=== PATIENT | female | born 1940 | race Caucasian/White ===

== ENCOUNTER 2023-12-09 06:30 | Day surgery (SDC) | payer MEDICARE, SELFPAY ==
[2023-12-01 08:59] LABS: Hematocrit 41.6 % (37.0-47.0); Hemoglobin 13.6 g/dL (12.0-16.0); Mean Corp Hgb Conc. 32.7 g/dL (33.0-37.0); Mean Corpuscular Hgb 30.5 pg (27.0-31.0); Mean Corpuscular Volume 93.3 fL (81.0-99.0); Mean Platelet Volume 9.5 fL (7.4-10.4); Platelet Count 216 10^3/uL (130-400); Red Blood Cell Count 4.46 10^6/uL (4.20-5.40); Red Cell Dist. Width 12.4 % (11.5-14.5); White Blood Cell Count 4.4 10^3/uL (4.8-10.8)
[2023-12-01 09:29] LABS: Blood Urea Nitrogen 16 mg/dl (7-17); Calcium 9.7 mg/dl (8.4-10.2); Carbon Dioxide 28 mmol/L (22-30); Chloride 100 mmol/L (98-107); Glucose 86 mg/dl (70-99); Potassium 4.2 mmol/L (3.5-5.1); Sodium 136 mmol/L (135-145); eGFR > 60.00
[2023-12-01 15:50] VITALS: BMI 20.8
--- NOTE | 2023-12-04 13:56 | PTCARENOTE ---
Abnormal EKG on 12/01/23. Dr. Lozoya made aware. No intervention needed.
--- NOTE | 2023-12-05 10:27 | CM ---
Patient is scheduled for surgery with Dr. Rondon on 12/09/23. Spoke with patient prior to surgery via telephone. Introduced role of case management. Patient reports that she lives with her in a two story home. Bedroom and bathroom are on the
second floor. She functions independently and does not use any DME. She has a cane and rolling walker from prior knee replacement surgery. She never had VN services. She has a prescription plan and uses [facility] in [place].
PCP is Dr. Hira Lee
Patient states that she will have support from her son, Last (who lives next door to patient and her ), when she goes home. She has no discharge planning concerns at this time.
[2023-12-09] VITALS (15 sets, daily range): BP systolic 103–162; BP diastolic 52–98; BMI 20.8; BMI 21.0
[2023-12-09] MEDS: NORMOSOL-R 1000 IV ×2 (11:45→18:40)
[2023-12-09] MEDS: Pyridium 200 MG PO (12:38)
[2023-12-09] MEDS: HEPARIN 5000 UNITS SC (12:39)
[2023-12-09] MEDS: FLAGYL 500 MG 100 IV (13:33)
[2023-12-09] MEDS: DILAUDID 0.25 MG IV (18:27)
[2023-12-09] MEDS: LOVENOX 40 MG SC (20:11)
[2023-12-09] MEDS: COLACE 100 MG PO (20:12)
[2023-12-09] MEDS: ROXICODONE 2.5 MG PO (20:15)
--- NOTE | 2023-12-09 21:00 | PTCARENOTE ---
Pt was admitted to . [facility]. AAOx3 pleasant.Pt has minimal pain and was informed about possible abd cramps from procedure. Heart sounds are regular and Lungs WNL. Abr round, distended and tender to palpation. pt is passing gas. Grace catheter intact.
Abd surgical sites appear dry and intact. Call lange within reach.
[2023-12-09] MEDS: MYLICON 80 MG PO (21:31)
[2023-12-10] MEDS: NORMOSOL-R 1000 IV (00:30)
[2023-12-10 03:00] VITALS: BP 114/65
[2023-12-10] MEDS: ROXICODONE 5 MG PO (03:02)
[2023-12-10] MEDS: MYLICON 80 MG PO ×2 (03:02→10:38)
[2023-12-10 05:08] LABS: Hemoglobin 10.4 g/dL (12.0-16.0); Mean Corp Hgb Conc. 33.5 g/dL (33.0-37.0); Mean Corpuscular Volume 89.3 fL (81.0-99.0); Mean Platelet Volume 9.4 fL (7.4-10.4); Platelet Count 138 10^3/uL (130-400); Red Blood Cell Count 3.47 10^6/uL (4.20-5.40); Red Cell Dist. Width 12.1 % (11.5-14.5); White Blood Cell Count 9.3 10^3/uL (4.8-10.8)
[2023-12-10 05:29] LABS: Blood Urea Nitrogen 11 mg/dl (7-17); Carbon Dioxide 26 mmol/L (22-30); Chloride 100 mmol/L (98-107); Estimated Creatinine Clearance 66 ml/min; Potassium 3.4 mmol/L (3.5-5.1); Sodium 129 mmol/L (135-145)
--- NOTE | 2023-12-10 07:09 | W.PN.GYN ---
Today's Communication / Plan
-
1. voiding trial
2. d/c home
Physician Note
-
Assessment and Plan:
83 yo woman POD 1 s/p robotic TLH, BSO, sacrocolpopexy, KEMAR, posterior colporrhaphy with perineoplasty, retropubic midurethral sling, cystoscopy: meeting postoperative milestones and doing well on POD1.
1. Postoperative Care:
-Heplock IV
-Regular diet
-DVT ppx: lovenox, ambulation, scds
-CBC: WNL
-BMP: WNL
-UOP: adequate
-Voiding trial: blackburn removed, awaiting void
2. Dispo
-d/c home today
Subjective:
-pain well controlled, tolerating diet, foely removed, no flatus, denies nausea/vomiting, sob, chest pain, fevers/chills, leg pain
Objective:
Intake and Output
12/08/23 12/09/23 12/10/23 12/11/23
06:59 06:59 06:59 06:59
Intake Total 1380 / 1380
Output Total 2450 / 2450
Balance -1070 / -1070
Intake:
Oral fluids 480 / 480
IV fluids (Total) 900 / 900
Normosal 400 / 400
Output:
Urine, Blackburn 2450 / 2450
Vital Signs
Temp Pulse Resp BP Pulse Ox
98.2 F 92 16 114/65 98
12/10/23 03:00 12/10/23 03:00 12/10/23 03:00 12/10/23 03:00 12/10/23 03:00
Lab Results
12/10/23 04:31
12/10/23 04:31
Exam:
Incisions: clean, dry, intact
Abdomen: soft, nontender, nondistended
: minimal spotting
[2023-12-10 07:50] VITALS: BP 127/69
[2023-12-10] MEDS: COLACE 100 MG PO (07:51)
--- NOTE | 2023-12-10 08:10 | CM ---
Reviewed chart and discussed with RN. Patient is s/p robotic TLH, BSO, sacrocolpopexy, KEMAR, posterior colporrhaphy with perineoplasty, retropubic midurethral sling, cystoscopy. Grace d/c'd this am; voiding trial in progress. Met with patient at
bedside. Confirmed information previously obtained for assessment and discussed discharge plans. Patient continues to plan to return home at discharge. She will have support from her and son when she goes home. She continues to have no
concerns about discharge plans.
No discharge planning needs identified.
[2023-12-10 11:35] VITALS: BP 130/71
--- NOTE | 2023-12-10 16:30 | PTCARENOTE ---
"Patient was due to void by 1230 per policy. Patient had not voided. Bladder scan at [address] Rondon made aware and instructed RN to give patient 2 more hours. At 1430 patient still had not gone. bladder scan at that time was 353. "Stefania"Alcon made aware. When RN returned to the [facility] patient had voided 300 ml dark yellow urine. PVR 39. Dr. Rondon made aware. Telephone order to discharge patient take at 1540. Patient discharged at 1600."
== END 2023-12-10 16:27 | disposition home or self-care (01) ==
LOC: SDS 06:30
PROVIDERS: ATTENDING PHYSICIAN Obstetrics & Gynecology; FAMILY PHYSICIAN Family Medicine
DX: N81.2 Incomplete uterovaginal prolapse (principal); N95.2 Postmenopausal atrophic vaginitis; N39.3 Stress incontinence (female) (male); D25.9 Leiomyoma of uterus, unspecified; N80.03 Adenomyosis of the uterus; N88.4 Hypertrophic elongation of cervix uteri
CPT/HCPCS: 57425; 58571; 57250; 57288; 88305; 36415; 80048; 80051; 82565; 84520; 85027; 86850; 86900; 86901; 93005; C1763; C1771

== ENCOUNTER → 2024-06-11 07:58 | Outpatient (REF) | payer MEDICARE, SELFPAY | LOC: WDC 07:58 | PROVIDERS: ATTENDING PHYSICIAN Family Medicine; FAMILY PHYSICIAN Physician Assistant | DX: Z12.31 Encounter for screening mammogram for malignant neoplasm of breast (principal); M81.0 Age-related osteoporosis without current pathological fracture | CPT/HCPCS: 77063; 77067; 77080 ==

== ENCOUNTER → 2025-03-25 09:33 | Outpatient (REF) | payer MEDICARE, SELFPAY | LOC: REG 09:33 | PROVIDERS: ATTENDING PHYSICIAN Physical Medicine & Rehabilitation; FAMILY PHYSICIAN Family Medicine | DX: M47.816 Spondylosis without myelopathy or radiculopathy, lumbar region (principal); Z87.39 Personal history of other diseases of the musculoskeletal system and connective tissue | CPT/HCPCS: 72100 ==

== ENCOUNTER → 2025-03-28 12:53 | Outpatient (REF) | payer MEDICARE, SELFPAY | LOC: RAD 12:53 | PROVIDERS: ATTENDING PHYSICIAN Nurse Practitioner Family; FAMILY PHYSICIAN Family Medicine | DX: M79.89 Other specified soft tissue disorders (principal) | CPT/HCPCS: 93971 ==

== ENCOUNTER → 2025-05-05 14:31 | Outpatient (REF) | payer MEDICARE, SELFPAY | LOC: RAD 14:31 | PROVIDERS: ATTENDING PHYSICIAN Nurse Practitioner Family | DX: M79.89 Other specified soft tissue disorders (principal) | CPT/HCPCS: 73590 ==

== ENCOUNTER → 2025-05-24 08:48 | Outpatient (REF) | payer MEDICARE, SELFPAY | LOC: DHVS 08:48 | PROVIDERS: ATTENDING PHYSICIAN Nurse Practitioner Family; FAMILY PHYSICIAN Family Medicine | DX: M79.89 Other specified soft tissue disorders (principal); L03.115 Cellulitis of right lower limb | CPT/HCPCS: 93926 ==

== ENCOUNTER 2025-06-03 07:40 | Emergency (ER) | payer MEDICARE, SELFPAY ==
[2025-06-03 07:41] VITALS: BP 175/85
--- NOTE | 2025-06-03 07:53 | ED.GENMED ---
History of Present Illness
<Georgina Chris MD, Resident - Last Filed: 06/03/25 11:49>
General
Chief Complaint: Skin Problem
Source: patient
Exam Limitations: none
Time Seen by Provider: 06/03/25 07:50
Nursing documentation reviewed up to this point in time: agreed with
History of Present Illness
History of Present Illness:
85-year-old female with past medical history of hypertension comes to the ED due to continued erythema, edema of her right lower extremity that has been going on for the past few months since March. She has had extensive workup at her PCP with
multiple ultrasounds and 3 course of antibiotic treatment starting with Keflex, Doxy, Bactrim. She was also given Lasix to try to help with edema but that did not help either. Just currently she is scheduled for an MRI on September 05. She decided
to come to the ED due to her right foot being edematous now too. She does not have any pain or tenderness in the area of erythema, there is just some edema and redness. Left leg has presence of varicose veins but no edema or tenderness either.
She does not report any fever, shortness of breath, trouble breathing, headaches, chest pain rating symptoms alongside of this. She had right knee surgery around 3 years ago reports no pain in the knee at this time.
Past History
<Georgina Chris MD, Resident - Last Filed: 06/03/25 11:49>
Past History
ED Past Medical History: HTN and Other (OA right knee)
ED Past Surgical History: Other (In 1988 thyroid mass removed and was benign.)
Social History
Tobacco: Non-smoker
Alcohol: Occasional
Drug: None
Personal:
Living: with family
Employment: Retired
Family History
Family History: Unable to obtain
Review of Systems
<Georgina Chris MD, Resident - Last Filed: 06/03/25 11:49>
Review of Systems
Allergies reviewed?: Yes
Constitutional: Denies fever or chills
EENT: Reports no symptoms
Respiratory: Reports no symptoms
Cardiac: Reports no symptoms
ABD/GI: Reports no symptoms
: Reports no symptoms
Musculoskeletal: Reports edema (Right lower leg)
Skin: Reports other (Erythema right lower leg)
Neurological: Reports no symptoms
Endocrine: Reports no symptoms
Hematologic/Lymphatic: Reports no symptoms
Psychiatric: Reports no symptoms
Phy Exam
<Georgina Chris MD, Resident - Last Filed: 06/03/25 11:49>
General Physical Exam
General Presentation: well appearing and no apparent distress
General Skin: warm and dry
General Habitus: elderly
General Mental: alert
General Hydration: appears well hydrated
Cardiovascular Exam
Cardiovascular Exam: regular rate/rhythm, no edema and no murmur
Pulmonary Exam
Pulmonary Exam: lungs clear, no respiratory distress, no crackles and no wheezing
Gastrointestinal Exam
Gastrointestinal Exam: normal bowel sounds, non tender, soft and non distended
Neurological Exam
Neurological Exam: alert, oriented x3, no motor deficits and no sensory deficits
Musculoskeletal Exam
Musculoskeletal Exam: full ROM, edema (Right lower extremity mild pedal edema, mild edema along right tibia) and neuro vasc intact (Pedal pulses + popliteal pulses palpable)
Skin Exam
Skin Exam: erythema (Right lower extremity erythema around the right garvin, without tenderness)
Course
<Georgina Chris MD, Resident - Last Filed: 06/03/25 11:49>
Orders/Labs/Results
Orders:
Orders
06/03/25 09:23
US Periph Venous LOWER Ext RT Urgent
Comment:
Reason For Exam: Right lower extremity edema
06/03/25 10:21
Complete Blood Count/With Diff Urgent
Comprehensive Metabolic Panel Urgent
Abnormal Lab Results
06/03/25
10:21
RBC 4.10 L 10^6/uL
(4.20-5.40)
MCHC 32.4 L g/dL
(33.0-37.0)
Monocytes % 9.7 H %
(1.7-9.3)
Sodium 132 L mmol/L
(135-145)
Creatinine 0.5 L mg/dL
(0.6-1.0)
06/03/25 10:21
06/03/25 10:21
Vital Signs
Initial and Last Documented VS:
Initial Vital Signs
Temp Pulse Resp BP Pulse Ox
98.1 F 84 18 175/85 100
06/03/25 07:41 06/03/25 07:41 06/03/25 07:41 06/03/25 07:41 06/03/25 07:41
Last Documented Vital Signs
Temp Pulse Resp BP Pulse Ox
98.7 F 69 18 150/91 98
06/03/25 10:19 06/03/25 11:46 06/03/25 07:41 06/03/25 11:46 06/03/25 11:46
<Fredis Travis, DO - Last Filed: 06/03/25 11:45>
Orders/Labs/Results
Orders:
Orders
06/03/25 09:23
US Periph Venous LOWER Ext RT Urgent
Comment:
Reason For Exam: Right lower extremity edema
06/03/25 10:21
Complete Blood Count/With Diff Urgent
Comprehensive Metabolic Panel Urgent
Abnormal Lab Results
06/03/25
10:21
RBC 4.10 L 10^6/uL
(4.20-5.40)
MCHC 32.4 L g/dL
(33.0-37.0)
Monocytes % 9.7 H %
(1.7-9.3)
Sodium 132 L mmol/L
(135-145)
Creatinine 0.5 L mg/dL
(0.6-1.0)
06/03/25 10:21
06/03/25 10:21
Vital Signs
Initial and Last Documented VS:
Initial Vital Signs
Temp Pulse Resp BP Pulse Ox
98.1 F 84 18 175/85 100
06/03/25 07:41 06/03/25 07:41 06/03/25 07:41 06/03/25 07:41 06/03/25 07:41
Last Documented Vital Signs
Temp Pulse Resp BP Pulse Ox
98.7 F 69 18 150/91 98
06/03/25 10:19 06/03/25 11:46 06/03/25 07:41 06/03/25 11:46 06/03/25 11:46
<Georgina Chris MD, Resident - Last Filed: 06/03/25 11:49>
MDM/Problems Addressed
Differential Diagnosis Includes:
RLE Cellulitis, RLE DVT, RLE Stasis Dermatitis
MDM/Problems Addressed:
85-year-old female with past medical history of hypertension comes to the ED due to continued erythema, edema of her right lower extremity that has been going on for the past few months since March.
Patient has had multiple right lower extremity ultrasounds to check for DVTs in the past. Will repeat ultrasound today.
Erythema may be just due to stasis dermatitis and has been treated with multiple antibiotic treatments in the past
US Right lower extremity today does not show any evidence of DVT
Unclear why there is edema but erythema could be due to dermatitis.
Edema could be due to lymphedema, will need to follow-up with lymphedema therapist. Discussed with patient regarding continued use of compression stockings
Chronic conditions affecting care: HTN
<Georgina Chris MD, Resident - Last Filed: 06/03/25 11:49>
*Pulse Oximetry
SaO2: 100
Oxygen Mode of Delivery: Room air
Patient hypoxic: no
*Critical Care Note
Total Time (30-74mins, 75-104mins- exclusive of procedures): Not Applicable
<Fredis GueritaShant Travis DO - Last Filed: 06/03/25 11:45>
Update Note
Update Note:
Note:
CHIEF COMPLAINT(S)
Swelling in the right leg.
HISTORY OF PRESENT ILLNESS
The patient is an 85-year-old female who presents with an enlarged right leg. The symptoms began in early March after participating in a [employer] Day parade, which involved prolonged standing. She reports the swelling has been consistent every day
since then, persisting throughout the day and increasing into the foot, particularly over the past week. The patient notes that she has tried wearing compression stockings with no success. She describes the swelling as more profound in the mornings.
Additionally, there is noticeable enlargement of varicose veins and a constant redness that has been present alongside the swelling.
She underwent a venous ultrasound in March, with a subsequent recent arterial ultrasound. Past treatment with antibiotics did not alleviate the symptoms. Her primary doctor had suspected dermatitis as a potential cause. No blood work abnormalities
were noted in previous evaluations. The plan is to repeat the ultrasound to rule out any clotting issues as a possible cause for the unilateral swelling, given the prior imaging results and to conduct lab work to check her white blood cell count and
kidney function.
PAST MEDICAL AND SURIGICAL HISTORY
The patient mentioned previous evaluations that included blood work with normal results and no prior conditions contributing directly to the current issue.
SOCIAL DETERMINANTS AFFECTING HEALTH
The patient expressed being quite active, regularly walking around her house, which is encouraged to maintain circulation.
REVIEW OF SYSTEMS
- Cardiovascular: Consistent swelling in the right leg, larger in the mornings and into the foot.
- Integumentary: Presence of varicose veins, chronic redness of the leg.
- Vascular: Recent normal arterial ultrasound and prior venous ultrasound.
PHYSICAL EXAM
General: Alert, no acute distress.
Skin: Warm, dry.
Head: Normocephalic, atraumatic.
Neck: Supple, trachea midline.
Eyes, Ears, Nose, Mouth, and Throat: Oral mucosa moist.
Cardiovascular: Normal peripheral perfusion, no edema in the left leg; significant edema in the right leg.
Respiratory: Respirations are non-labored.
Gastrointestinal: Abdomen nondistended.
Back: Normal range of motion, normal alignment.
Musculoskeletal: Normal range of motion, normal strength.
Neurological: Alert and oriented to person, place, time, and situation, no focal neurological deficit observed.
Psychiatric: Cooperative, appropriate mood & affect.
PROBLEM LIST
- Acute: Swelling and erythema of the right leg.
- Chronic: Varicose veins.
PLAN
1. Conduct lab work to assess white blood cell count and kidney function.
2. Repeat the venous ultrasound to evaluate for potential progression in clotting.
3. Continued encouragement of physical activity to promote circulation.
DIFFERENTIAL DIAGNOSIS
The Differential Diagnosis includes, in no particular order and is not limited to:
1. Deep vein thrombosis
2. Chronic venous insufficiency
3. Cellulitis
4. Lymphedema
5. Heart failure
6. Lipodermatosclerosis
7. Peripheral arterial disease
8. Dermatologic conditions
9. Systemic causes (e.g., nephrotic syndrome)
10. Trauma-induced edema
Disposition:
SUMMARY OF ENCOUNTER
An 85-year-old female presented to the emergency department with persistent brawny edema in the right lower extremity, without fever. Laboratory tests including CBC and chemistry panels were normal, with a normal white count and no left shift.
Previous vascular and venous ultrasounds were negative for deep vein thrombosis (DVT), and an arterial study was also negative. The symptoms are consistent with lymphedema, although the etiology remains unclear. The patient had not been using
compression stockings as recommended. Despite previous treatments with three different antibiotics, symptoms remain unchanged, indicating a non-infectious cause, making cellulitis unlikely.
PLAN
Referral to primary care physician for the consideration of lymphedema therapy. Recommendations to start wearing compression stockings have been reiterated. Dermatology follow-up is also suggested to rule out other potential dermatologic conditions.
INDEPENDENT REVIEW OF LABS AND INTERPRETATION OF TESTS
My independent review of CBC is normal, including normal white cell count without left shift. My independent review of chemistry is normal. My independent review of previous venous ultrasound is negative for DVT. My independent review of the
arterial study is negative.
PATIENT EDUCATION AND COUNSELING
Discussed the use of compression stockings to manage swelling and emphasized the importance of adherence to this intervention.
FOLLOW-UP INSTRUCTIONS
Follow-up with primary care physician for consideration of lymphedema therapy and dermatology follow-up.
MEDICAL DECISION MAKING
-Complexity of Data Reviewed: Chronic conditions affecting care include chronic venous insufficiency and chronic lymphedema. Differential Diagnosis includes: Deep vein thrombosis, Chronic venous insufficiency, Cellulitis, Lymphedema, Heart failure,
Lipodermatosclerosis, Peripheral arterial disease, Dermatologic conditions, Systemic causes (e.g., nephrotic syndrome), Trauma-induced edema.
-Data:
Category 1
I ordered the review of patients CBC and chemistry panel results which were normal. There is a documented review of venous and arterial ultrasound studies, both negative for abnormalities.
Category 2
My independent interpretation of imaging results reveals no DVT or arterial abnormalities.
-Risk:
Consideration of Admission/Observation: Escalation of care including admission/observation was considered given the complexity and risk of the patients presenting complaint, exam findings, and/or their underlying comorbidities. However, ultimately I
feel the patient is safe for outpatient management with close follow-up. Reasoning: Work-up reassuring, does not reveal any acute life/organ-threatening processes, patients symptoms well controlled upon reevaluation, reexamination is reassuring,
vitals are stable, patient agreeable with discharge, reliable for follow-up.
DIAGNOSIS
Lymphedema, right lower extremity (ICD-10: I89.0). Chronic venous insufficiency (ICD-10: I87.2).
ED Attending Note
<Georgina Chris MD, Resident - Last Filed: 06/03/25 11:49>
-
Portions of this chart may have been created with voice recognition software.� Occasional wrong word or��sound alike� substitutions may have occurred due to the inherent limitations of voice recognition software.
Discharge Plan
Departure
Patient Disposition: Home (Routine Discharge)
Date of Disposition: 06/03/25
Time of Disposition: 11:48
Patient with high blood pressure during this ER visit?: Yes
Condition: Good
Covid-19: Not Applicable
Discharge Problem:
Edema of right lower extremity
Instructions: Swelling, BLOOD PRESSURE
Prescriptions:
No Action
calcium carbonate 500 MG tablet
500 mg PO DAILY
amlodipine 5 MG tablet
5 mg PO HS Qty: 0 0RF
Rx Instructions:
Hold if systolic blood pressure <130 while on Oxycodone.
estradiol 0.01 % (0.1 mg/gram) Cream
1 g VAGINAL TUTH
acetaminophen [Tylenol Extra Strength] 500 mg Tablet
1,000 mg PO BID
cholecalciferol (vitamin D3) [Vitamin D3] 25 mcg (1,000 unit) Tablet
25 mcg PO DAILY
Prolia 60 mg/mL Syringe
60 mg SC [id number]
diclofenac sodium 1 % gel
1 ea TOPICAL TIDPRN PRN (Reason: hand and wrist pain)
docusate sodium 100 mg capsule
100 mg PO BIDPRN PRN (Reason: constipation)
Referrals:
Hira Lee MD [Family Provider, Family Practice]
Activity Restrictions/Additional Instructions:
As discussed please follow-up with your primary care physician in 1 week. Discussed with them that your symptoms might be due to lymphedema. Would recommend following up with lymphedema specialist for therapy.
You can also speak with your PCP regarding following up with dermatology.
Please return to the ED if you develop any worsening fever, chills, shortness of breath, difficulty breathing, chest pain.
Please continue using compression stockings on your right lower extremity
Interventions
Interventions:
*Risk Screen - Suicide Last Done: 06/03/25 07:41
*General Assessment Last Done: 06/03/25 07:41
*Neglect/Abuse Screening Last Done: 06/03/25 07:41
*ED COVID-19 Vaccine History Last Done: 06/03/25 07:41
ED-Skin Assessment Last Done: 06/03/25 10:26
Discharge Date and Time
Print Language: NEPALI
[2025-06-03 10:19] VITALS: BP 157/96
[2025-06-03 10:28] LABS: Hematocrit 37.3 % (37.0-47.0); Hemoglobin 12.1 g/dL (12.0-16.0); Mean Corp Hgb Conc. 32.4 g/dL (33.0-37.0); Mean Corpuscular Volume 91.0 fL (81.0-99.0); Nucleated Red Blood Cells % 0 %; Platelet Count 197 10^3/uL (130-400); Red Cell Dist. Width 13.2 % (11.5-14.5)
[2025-06-03 10:45] LABS: ALT (SGPT) 21 U/L (0-35); AST (SGOT) 26 U/L (14-36); Albumin 4.5 g/dl (3.5-5.0); Alkaline Phosphatase 53 U/L (38-126); Blood Urea Nitrogen 16 mg/dl (7-17); Calcium 9.6 mg/dl (8.4-10.2); Carbon Dioxide 24 mmol/L (22-30); Chloride 102 mmol/L (98-107); Glucose 91 mg/dl (70-99); Potassium 3.9 mmol/L (3.5-5.1); Sodium 132 mmol/L (135-145); Total Protein 7.1 g/dl (6.3-8.2); eGFR > 60.00
[2025-06-03 11:46] VITALS: BP 150/91
== END 2025-06-03 12:05 | disposition home or self-care (01) ==
LOC: EMR 07:40
PROVIDERS: EMERGENCY PHYSICIAN Emergency Medicine; FAMILY PHYSICIAN Family Medicine
DX: I89.0 Lymphedema, not elsewhere classified (principal); I87.2 Venous insufficiency (chronic) (peripheral); R22.41 Localized swelling, mass and lump, right lower limb; I10 Essential (primary) hypertension
CPT/HCPCS: 99284; 80053; 85025; 93971

== ENCOUNTER → 2025-06-16 08:14 | Outpatient (REF) | payer MEDICARE, SELFPAY | LOC: WDC 08:14 | PROVIDERS: ATTENDING PHYSICIAN Nurse Practitioner Family | DX: Z12.31 Encounter for screening mammogram for malignant neoplasm of breast (principal) | CPT/HCPCS: 77063; 77067 ==

== ENCOUNTER → 2025-07-05 13:21 | Outpatient (REF) | payer MEDICARE, SELFPAY | LOC: PAVMRI 13:21 | PROVIDERS: ATTENDING PHYSICIAN Nurse Practitioner Family; FAMILY PHYSICIAN Family Medicine | DX: M79.89 Other specified soft tissue disorders (principal); L03.115 Cellulitis of right lower limb | CPT/HCPCS: 73720; A9575 ==